=== PATIENT | male | born 1975 | race Hispanic/Latino ===

== ENCOUNTER 2023-06-14 13:51 | Emergency (ER) | payer BC ==
[~2023-06-14] VITALS: Ht 172.7 cm; Wt 117.9 kg
[2023-06-14] MEDS ORDERED: LISINOPRIL 5 MG TABLET PO SCH (14:00)
[2023-06-14 14:20] LABS: BASOPHILS # (AUTO) 0.05 K/uL (0.00-0.20); BASOPHILS % (AUTO) 0.7 % (0.0-5.0); EOSINOPHILS # (AUTO) 0.26 K/uL (0.00-0.70); EOSINOPHILS % (AUTO) 3.6 % (0.0-8.0); HEMATOCRIT 42.7 % (42-54); IMMATURE GRANULOCYTE ABSOLUTE 0.02 K/uL (0-1); LYMPHOCYTES # (AUTO) 1.9 K/uL (1.0-4.8); LYMPHOCYTES % (AUTO) 26.5 % (21.0-51.0); MEAN CORPUSCULAR HEMOGLOBIN 30.4 pg (27.0-33.0); MEAN CORPUSCULAR HGB CONC 34.4 g/dL (32.0-36.0); MEAN CORPUSCULAR VOLUME 88.4 fL (79-99); MONOCYTES # (AUTO) 0.6 K/uL (0.1-1.0); MONOCYTES % (AUTO) 8.2 % (3.0-13.0); NEUTROPHILS # (AUTO) 4.4 K/uL (1.8-7.7); NEUTROPHILS % (AUTO) 60.7 % (40.0-77.0); PLATELET COUNT (AUTO) 204 K/uL (130-400); RED BLOOD CELL COUNT(AUTO) 4.83 MIL/uL (4.50-6.20); RED CELL DISTRIBUTION WIDTH 13.1 % (11.0-15.5); WHITE BLOOD COUNT (AUTO) 7.2 K/uL (4.8-10.8)
[2023-06-14 14:28] LABS: POTASSIUM 3.8 mmol/L (3.5-5.1)
[2023-06-14 14:33] LABS: ALBUMIN 3.8 g/dL (3.5-5.0); BILIRUBIN,TOTAL 0.4 mg/dL (0.2-1.0)
[2023-06-14 15:31] VITALS: BP 152/100; PULSE 90; RESP 17; O2SAT 98
[2023-06-14] MEDS ORDERED: AMLO5TAB5 PO (15:31)
[2023-06-14 19:17] LABS: APPEARANCE,URINE CLEAR (CLEAR); BILIRUBIN,URINE NEGATIVE (NEGATIVE); COLOR,URINE LIGHT-YELLOW (YELLOW); GLUCOSE, URINE (UA) TRACE mg/dL (NEGATIVE); KETONES,URINE 10 mg/dL (NEGATIVE); LEUKOCYTE ESTERASE ,URINE NEGATIVE Leu/uL (NEGATIVE); NITRATE,URINE NEGATIVE (NEGATIVE); OCCULT BLOOD,URINE NEGATIVE (NEGATIVE); PH,URINE 7.5 (5.0-8.0); PROTEIN,URINE NEGATIVE (NEGATIVE); UROBILINOGEN,URINE 3 mg/dL (0.2-1.0)
[2023-06-14 19:18] LABS: ADD UA MICROSCOPIC YES
[2023-06-14 19:21] LABS: BACTERIA,URINE RARE /HPF (None Seen); RBC,URINE 0-1 /HPF (0-1); WBC,URINE 0-1 /HPF (0-1)
[2023-06-14 19:25] LABS: AMPHET/METH SCREEN,URINE NEGATIVE (NEGATIVE); BARBITURATE SCREEN, URINE NEGATIVE (NEGATIVE); BENZODIAZEPINES SCREEN,URINE NEGATIVE (NEGATIVE); CANNABINOID SCREEN,URINE NEGATIVE (NEGATIVE); COCAINE SCREEN,URINE NEGATIVE (NEGATIVE); OPIATE SCREEN,URINE NEGATIVE (NEGATIVE); PHENCYCLIDINE SCREEN,URINE NEGATIVE (NEGATIVE)
== END 2023-06-14 16:40 | disposition home or self-care (01) ==
LOC: EDH 13:51
DX: I10 Essential (primary) hypertension (principal)
CPT/HCPCS: 36415; 71045; 80053; 80305; 81001; 84484; 85025; 93005

== ENCOUNTER 2024-05-05 16:40 | Emergency (ER) | payer BC ==
[~2024-05-05] VITALS: Ht 172.7 cm; Wt 113.4 kg
[~2024-05-05 16:40] MED LIST: AMLO5TAB5 PO
[2024-05-05 17:19] LABS: BASOPHILS # (AUTO) 0.04 K/uL (0.00-0.20); BASOPHILS % (AUTO) 0.4 % (0.0-5.0); EOSINOPHILS # (AUTO) 0.15 K/uL (0.00-0.70); EOSINOPHILS % (AUTO) 1.3 % (0.0-8.0); HEMATOCRIT 44.5 % (42-54); IMMATURE GRANULOCYTE ABSOLUTE 0.08 K/uL (0-1); LYMPHOCYTES # (AUTO) 1.8 K/uL (1.0-4.8); LYMPHOCYTES % (AUTO) 15.9 % (21.0-51.0); MEAN CORPUSCULAR HEMOGLOBIN 30.7 pg (27.0-33.0); MEAN CORPUSCULAR HGB CONC 35.1 g/dL (32.0-36.0); MEAN CORPUSCULAR VOLUME 87.6 fL (79-99); MONOCYTES # (AUTO) 0.5 K/uL (0.1-1.0); MONOCYTES % (AUTO) 4.5 % (3.0-13.0); NEUTROPHILS # (AUTO) 8.6 K/uL (1.8-7.7); NEUTROPHILS % (AUTO) 77.2 % (40.0-77.0); PLATELET COUNT (AUTO) 216 K/uL (130-400); RED BLOOD CELL COUNT(AUTO) 5.08 MIL/uL (4.50-6.20); RED CELL DISTRIBUTION WIDTH 13.3 % (11.0-15.5); WHITE BLOOD COUNT (AUTO) 11.2 K/uL (4.8-10.8)
[2024-05-05 17:30] LABS: CREATININE 1.1 mg/dL (0.5-1.3); POTASSIUM 3.5 mmol/L (3.5-5.1)
[2024-05-05 17:39] LABS: BILIRUBIN,TOTAL 0.4 mg/dL (0.2-1.0); MAGNESIUM 1.8 mg/dL (1.80-2.40); TOTAL PROTEIN, SERUM 7.5 g/dL (6.0-8.3)
[2024-05-05] MEDS: ONDANSETRON 4MG INJ IVP ONE (18:31)
[2024-05-05] MEDS: 0.9%NACL 1000ML 1,000 ML IV ONE (18:31)
[2024-05-05] MEDS: DIAZEPAM 2 MG TAB PO ONE (18:31)
[2024-05-05] MEDS ORDERED: HYDR-3421 PO (20:04)
[2024-05-05 20:32] VITALS: BP 138/72; PULSE 84; RESP 20; O2SAT 98
== END 2024-05-05 20:50 | disposition home or self-care (01) ==
LOC: EDH 16:40
DX: T75.3XXA Motion sickness, initial encounter (principal); R07.89 Other chest pain; F41.1 Generalized anxiety disorder; I10 Essential (primary) hypertension; Z79.899 Other long term (current) drug therapy; Y93.89 Activity, other specified; Y99.8 Other external cause status
CPT/HCPCS: 99284; 96374; 71045; 96361; 83735; 84484 ×2; 80053; 85025; 36415; 93005; J7030; J2405

== ENCOUNTER 2025-06-08 09:41 | Emergency (ER) | payer BC ==
[~2025-06-08] VITALS: Ht 172.7 cm; Wt 117.9 kg
[~2025-06-08 09:41] MED LIST changes: -AMLO5TAB5 PO; +AMLO5TAB6 PO; +HYDR-3421 PO
[2025-06-08 10:26] LABS: RAPID GROUP A STREP negative (NEGATIVE)
[2025-06-08 10:32] LABS: SARS-CoV-2, RNA, NAAT POSITIVE SARS CoV-2 (NEGATIVE)
[2025-06-08 10:37] LABS: INFLUENZA TYPE A Negative For Type A (NEGATIVE); INFLUENZA TYPE B Negative For Type B (NEGATIVE)
[2025-06-08] MEDS ORDERED: METH4TAB3 PO (10:59)
[2025-06-08] MEDS ORDERED: AZIT250T9 PO (10:59)
[2025-06-08] MEDS ORDERED: BENZ-39 PO (10:59)
--- NOTE | 2025-06-08 11:00 | ERN ---
General Chief Complaint: Cough Stated Complaint: COUGH, CONGESTION, COVID + Time Seen by MD: 10:10 Time Seen by Midlevel: 10:10 Source: patient History of Present Illness Initial Comments Patient is a 42-year-old male presenting to the emergency department for evaluation of flu-like symptoms started yesterday. Symptoms consist of cough and congestion. Patient had a positive at home COVID test yesterday. Allergies: Coded Allergies: No Known Allergies (Unverified Allergy, Unknown, 06/14/23) Home Meds Active Scripts Hydroxyzine HCl (Hydroxyzine HCl) 25 Mg Tablet, 25 MG PO QID PRN for anxiety , #30 TAB Prov:BRANDI EMMANUEL MD 05/05/24 Amlodipine Besylate (Norvasc) 5 Mg Tablet, 5 MG PO DAILY, #30 TAB Prov:BERT DWYER 06/14/23 Past Medical History Past Medical History: Hypertension Medical History Other: PURPURA TO BLE Past Surgical History: None Family History Family History: Negative Social History Social History: Negative, Lives with family ROS Dictation CONSTITUTIONAL: Negative except for HPI HEAD/FACE: Negative except for HPI EENT: Negative except for HPI RESPIRATORY: Negative except for HPI GASTROINTESTINAL/ABDOMINAL: Negative except for HPI GENITOURINARY: Negative except for HPI MUSCULOSKELETAL: Negative except for HPI INTEGUMENTARY: Negative except for HPI NEUROLOGICAL/PSYCH: Negative except for HPI HEMATOLOGIC/LYMPHATIC: Negative except for HPI All Systems Negative, Except as noted above. 13 point review of systems assessed and all negative except for above. Physical Exam Physical Exam Dictation Vital Signs reviewed General Appearance: Alert, oriented x 3, no acute distress, well developed, nourished. Head and Face: non-traumatic. Eyes: PERRL, pink conjunctivas, eyelid no trauma, anterior chamber with arcus senilis. Ears: Pinnas intact and no signs of trauma or erythema ear canals clear and no discharge TM no erythema Nose: No discharge, no bleeding. Oropharynx: Mouth normal, tongue pink, pharynx clear,no erythema, tonsils no exudates, no abscesses noted, mucous membrane moist Neck: Supple, non-tender, no thyromegaly, no masses, no JVD, no bruits Breast:Deferred Chest:No tenderness, no crepitus, no paradoxical movement, no retractions Lungs:Clear, well-ventilated, symmetric, no rales, no wheezing, no rhonchi, no stridor, good breath sounds bilaterally Heart: Regular rate, regular rhythm, no murmur, no gallops Vascular: no peripheral edema, Abdomen: Soft, positive bowel sounds, nondistended, no guarding, nontender, no rebound, no masses no hepatomegaly, no splenomegaly, no Ferreira's sign, no hernias. Rectal: Deferred Genital: Deferred Neurological: Normal speech, motor function intact, sensory function intact Musculoskeletal: Neck nontender, full range of motion, back nontender, full ra nge of motion, Extremities: nontender, full range of motion Skin: Color pink, dry, no turgor, no rash, no lacerations, no abrasions, no contusions. Lymphatic: Deferred Results Laboratory and Microbiology Lab and Micro Result Laboratory Tests Test 06/08/25 09:50 Influenza Type A Antigen Negative For Type A Influenza Type B Antigen Negative For Type B SARS-CoV-2, RNA, NAAT POSITIVE SARS CoV-2 Group A Streptococcus Rapid negative (NEGATIVE) Labs Reviewed?: Yes MDM MDM: Differential diagnosis: COVID-19, upper respiratory infection, viral illness There are no social concerns with this patient. Prescription drug management Prescriptions will include: Medrol pack, azithromycin Medical management and examination interpretation discussions were had by me with other qualified healthcare professionals as indicated for the patient's care. ED Course Orders Procedure Category Date Status Time Rapid (Group A Strep) LAB 06/08/25 Complete 09:59 Influenza Type A & B, LAB 06/08/25 Complete Rapid 09:59 Covid Rna Naat LAB 06/08/25 Complete 09:59 Dexamethasone 4mg/Ml PHA 06/08/25 Verified 1ml Vial (Dexametha 11:00 Vital Signs Date Time Temp Pulse Resp B/P (MAP) Pulse Ox O2 Delivery O2 Flow Rate FiO2 06/08/25 09:54 99.1 112 20 154/85 96 Room Air* 0 21 06/08/25 09:42 99.1 112 20 154/85 96 Room Air 0 DX & DISP Disposition: Discharge Departure Impression: Primary Impression: COVID-19 Condition: Stable Scripts Benzonatate (Tessalon Perles) 100 Mg Cap 100 MG PO TID for cough, #30 CAP 0 Refills Prov: GUIDO CORTEZ 06/08/25 Azithromycin (Azithromycin) 250 Mg Tablet 1 TAB PO AD for 5 Days, #6 TAB 0 Refills 2 the first day followed by 1 for days 2-5 Prov: GUIDO CORTEZ 06/08/25 Methylprednisolone (Medrol) 4 Mg Tab.ds.pk 1 TAB PO AD for 6 Days, #21 TAB 0 Refills 6 on day 1 then reduce by one tablet daily until gone Prov: GUIDO CORTEZ 06/08/25 Referrals: ODALYS CORBETT MD (PCP) Time of Disposition: 10:58 I have reviewed the case, and I agree with, Diagnosis and Plan I performed the substantive portion of the visit. I have reviewed and personally made and approve the management plan that is documented in the note by myself or the PEEWEE. I acknowledge for responsibility for the patient's management plan. GUIDO CORTEZ Jun 08, 2025 10:59
[2025-06-08 11:47] VITALS: BP 135/74; PULSE 92; RESP 20; TEMP 98.8; O2SAT 96
== END 2025-06-08 11:51 | disposition home or self-care (01) ==
LOC: EDH 09:41
DX: U07.1 COVID-19 (principal); I10 Essential (primary) hypertension; Z79.899 Other long term (current) drug therapy
CPT/HCPCS: 99284; 87635; 87880; 87804 ×2; 96372; J1100